=== PATIENT | female | born 1980 | race Caucasian/White ===

== ENCOUNTER 2017-05-19 06:34 | Inpatient (IN) | payer OTHER ==
[~2017-05-19] VITALS: Ht 154.9 cm; Wt 84.0 kg
[2017-05-19] MEDS ORDERED: OXYC-431 PO (06:53)
[2017-05-19] MEDS ORDERED: IBUP-1542 PO (06:53)
--- NOTE | 2017-05-19 07:01 | EN ---
Date/Time of Note Date/Time of Note DATE: 05/19/17 TIME: 07:00 ER Progress Note This patient is a direct admit from [facility]. Patient is admitted under panel physician ROMEO Ruiz DO May 19, 2017 07:00
[2017-05-19] MEDS ORDERED: SOD CHLORIDE 0.9% 1,000 ML IV SCH (07:24)
[2017-05-19] MEDS ORDERED: ONDANSETRON 4 MG INJ IV PRN ×2 (07:30→11:30)
[2017-05-19] MEDS ORDERED: ACETAMINOPHEN 325 MG TAB PO PRN ×2 (07:30→11:30)
[2017-05-19 09:05] VITALS: TEMP 98.1
[2017-05-19 10:07] VITALS: BP 115/61; PULSE 60; RESP 20
--- NOTE | 2017-05-19 11:22 | HP ---
Date/Time of Note Date/Time of Note DATE: 05/19/17 TIME: 11:16 Assessment/Plan VTE Prophylaxis VTE Prophylaxis Intervention: SCD's Lines/Catheters IV Catheter Type (from Nrsg): Peripheral IV Assessment/Plan Assessment/Plan 36 yo F with pmhx obesity, cholelithiasis admitted for abd pain found to have cholelithasis + elevated lipase, concerning for pancreatitis 2/2 gallstones v pancreatitis 2/2 other etios PLAN gen surg/Dr Louis consult for gallbladder eval check lipids/TGs check a1c though BG at OSH 140 (not markedly elevated) IVFs, pain control, zofran NPO pending gen surg eval DVT prophx HPI/ROS Admit Date/Time Admit Date/Time May 19, 2017 at 07:25 Hx of Present Illness 36 yo F with known h/o gallstones presented to [facility] with c/o RUQ/ epigastric pain. OSH vitals: Temp 35.8Cm HR 112, BP 132/81 Pt states the pain started 2 days ago. Mostly in RUQ with radiation to epigastric area. No fevers or chills. +mild nausea, no vomiting. +1 ep of diarrhea 10pROS neg except as per HPI PMH/Family/Social Past Medical History gallstones Social History not currently working Smoking Status: Never smoker Exam/Review of Systems Vital Signs Vitals Vital Signs Date Time Temp Pulse Resp B/P Pulse Ox O2 Delivery O2 Flow Rate FiO2 05/19/17 10:07 97.7 60 20 115/61 97 Room Air Exam Exam nad, laying flat EOMI MMM rrr no mrg lungs clear abd with ttp RUQ/epigastric area. No rebound or guarding no rashes no le edema Medications Medications Current Medications Sodium Chloride (NS) 1,000 ml @ 80 mls/hr [id number] IV Last administered on 05/19t 07:36; Admin Dose 80 MLS/HR; Start 05/19/17 at 07:24; Stop 05/19/17 at 19: 53 Procedures Procedures OSH imaging: RUQ US: cholelithiasis with minimal GB wall thickening, +fatty liver OSH labs 8.1>13/38<194 ChemP with Cr 0.75 Liver profile: lipase 1368, TB 4.7, ALT 400, AST 299, AP 180 UA large blood, trace protein, 10-25 WBCs (unclear if culture was sent) GEORGINA MCLEAN MD May 19, 2017 11:22
[2017-05-19] MEDS ORDERED: NACL 0.9% 3 ML SYG IV SCH (11:30)
[2017-05-19] MEDS ORDERED: DOCUSATE SODIUM 100 MG CAP PO PRN (11:30)
[2017-05-19] MEDS ORDERED: MAGNESIUM HYDROXIDE 30ML CUP PO PRN (11:30)
[2017-05-19] MEDS ORDERED: ONDANSETRON 4 MG TAB PO PRN (11:30)
[2017-05-19] MEDS: SOD CHLORIDE 0.9% 1,000 ML IV SCH ×2 (11:37→22:58)
[2017-05-19] MEDS: morphine 2 MG INJ IV PRN (11:37)
--- NOTE | 2017-05-19 12:34 | CONS ---
Date/Time of Note Date/Time of Note DATE: 05/19/17 TIME: 12:31 Assessment/Plan Assessment/Plan Additional Assessment/Plan Patient has biliary pancreatitis. We will arrange for an MRCP. If MRCP is negative we will proceed and arrange for laparoscopic cholecystectomy. I have discussed the procedure, outcomes, expectations, alternatives and risks in detail to the patient who is most anxious to proceed. Consultation Date/Type/Reason Admit Date/Time May 19, 2017 at 07:25 Date of Consultation: May 19, 2017 Type of Consultation: General surgery Reason for Consultation Biliary pancreatitis Hx of Present Illness The patient is a 36-year-old female who has known gallstones for approximately 1 month. She was evaluated at [facility] for abdominal ultrasound confirmed gallstones. She also had elevated lipase of 1600. She was transferred here because of insurance reasons, and surgical consultation has been requested in regards to further management. She has had no fevers chills or jaundice. Entirely unremarkable except for morbid obesity Social History Smoking Status: Never smoker Exam/Review of Systems Vital Signs Vitals Vital Signs Date Time Temp Pulse Resp B/P Pulse Ox O2 Delivery O2 Flow Rate FiO2 05/19/17 10:07 97.7 60 20 115/61 97 Room Air Exam Constitutional: alert Psych: no complaints Head: normocephalic Eyes: PERRL Neck: supple Respiratory: clear to auscultation Cardiovascular: regular rate and rhythm Gastrointestinal: tender (Epigastrium) Musculoskeletal: nl extremities to inspection Extremities: normal pulses Neurological: [employer] II-XII intact Medications Medications Current Medications Sodium Chloride (NS) 1,000 ml @ 125 mls/hr Q8H IV Last administered on 11:37; Admin Dose 125 MLS/HR; Start 05/19/17 at 11:12 Ondansetron HCl (Zofran Tab) 4 mg Q6H PRN PO NAUSEA AND/OR VOMITING; Start at 11:30 Ondansetron HCl (Zofran Inj) 4 mg Q6H PRN IV NAUSEA AND/OR VOMITING Last administered on 05/19/17 11:37; Admin Dose 4 MG; Start 05/19/17 at 11:30 Acetaminophen (Tylenol Tab) 650 mg Q6H PRN PO PAIN LEVEL 1-3 OR FEVER; Start at 11:30 Acetaminophen/ Hydrocodone Bitart ([place] (5/325)) 1 tab Q6H PRN PO MODERATE PAIN LEVEL 4-6; Start 05/19/17 at 11:30 Morphine Sulfate (morphine) 2 mg Q4H PRN IV SEVERE PAIN LEVEL 7-10 Last administered on 05/19/17t 11:37; Admin Dose 2 MG; Start 05/19/17 at 11:30 Docusate Sodium (Colace) 100 mg Q12H PRN PO CONSTIPATION; Start 05/19/17 at 11: 30 Magnesium Hydroxide (Milk Of Mag) 30 ml DAILY PRN PO CONSTIPATION; Start at 11:30 Enoxaparin Sodium (Lovenox) 40 mg DAILY SC ; Start 05/20/17 at 09:00 CHONG FARNSWORTH MD May 19, 2017 12:34
[2017-05-19 14:46] VITALS: BP 108/68; RESP 21
[2017-05-19] MEDS ORDERED: LORAZEPAM 1 MG TAB PO ONE (16:00)
[2017-05-19 20:53] VITALS: BP 119/83; RESP 18
[2017-05-20] VITALS (22 sets, daily range): BP systolic 96–144; BP diastolic 54–83; PULSE 60–76; RESP 16–23; Ht 154.9 cm; Wt 84.0 kg
[2017-05-20] MEDS: SOD CHLORIDE 0.9% 1,000 ML IV SCH ×3 (03:12→21:39)
[2017-05-20] MEDS ORDERED: LORAZEPAM 1 MG TAB PO SCH (06:00)
[2017-05-20 06:04] LABS: ADD SCAN DIFF NO
[2017-05-20 06:07] LABS: BASOPHILS % 0.1 % (0.0-2.0); EOSINOPHILS # 0.1 10^3/ul (0.0-0.5); EOSINOPHILS % 1.5 % (0.0-7.0); HEMATOCRIT 30.9 % (37.0-47.0); HEMOGLOBIN 10.4 g/dl (12.0-16.0); LYMPHOCYTES # 1.8 10^3/ul (0.8-2.9); LYMPHOCYTES % 26.9 % (15.0-51.0); MEAN CORPUSCULAR HEMOGLOBIN 32.9 pg (29.0-33.0); MEAN CORPUSCULAR HGB CONC 33.7 g/dl (32.0-37.0); MEAN CORPUSCULAR VOLUME 97.8 fl (82.0-101.0); MEAN PLATELET VOLUME 12.5 fl (7.4-10.4); MONOCYTE # 0.6 10^3/ul (0.3-0.9); MONOCYTES % 8.2 % (0.0-11.0); NEUTROPHIL # 4.2 10^3/ul (1.6-7.5); PLATELET COUNT 152 10^3/UL (140-415); RED BLOOD COUNT 3.16 10^6/ul (4.20-5.40); RED CELL DISTRIBUTION WIDTH 12.4 % (11.5-14.5); WHITE BLOOD COUNT 6.7 10^3/ul (4.8-10.8)
[2017-05-20 06:48] LABS: ALBUMIN 3.7 g/dl (3.3-4.9); ALBUMIN/GLOBULIN RATIO 1.37; BILIRUBIN,INDIRECT 1.7 mg/dl (0-1.1); BILIRUBIN,TOTAL 1.7 mg/dl (0.2-1.3); CALCIUM 8.4 mg/dl (8.4-10.2); CREATININE 0.59 mg/dl (0.44-1.00); POTASSIUM 3.5 mmol/L (3.5-5.1); TOTAL PROTEIN 6.4 g/dl (6.1-8.1)
[2017-05-20 06:52] LABS: CHOL/HDL RATIO 7.1 RATIO
[2017-05-20] MEDS: ENOXAPARIN 40 MG/0.4 ML SYG SC SCH (09:00)
--- NOTE | 2017-05-20 11:25 | RADRPT ---
PROCEDURE: MRCP. CLINICAL INDICATION: Right upper quadrant pain. Biliary pancreatitis. TECHNIQUE: MRCP was performed on the a high-resolution, high Ricarda field strength scanner. Patien t was examined without contrast. 3-D coronal rotating MIP images of the biliary tree are available for review. COMPARISON: None available FINDINGS: Gallbladder is remarkable for multiple sub centimeter gallstones. There is mild gallbladder wall thi ckening and pericholecystic edema. The biliary tree is not dilated. No intrahepatic nor extrahepati c biliary dilatation is present. No filling defect or choledocholithiasis is seen. There is no stric ture or obstruction. The pancreatic duct, as visualized, is equally unremarkable. IMPRESSION: 1. Multiple sub centimeter gallstones in nondistended gallbladder. Diffuse wall thickening with mi ld pericholecystic fluid is noted. The findings are equivocal for acute cholecystitis. Consider HI DA scan for further evaluation if there is clinical uncertainty. 2. No biliary ductal dilatation. No CBD stones. RPTAT: BB .Reina Ash MD, MD Date Time Electronically viewed and signed by .Reina Ash MD, MD on 05/20/2017 11:24 .O/
[2017-05-20] MEDS: HYDROCODONE/APAP (5/325) TAB PO PRN (11:49)
--- NOTE | 2017-05-20 16:03 | PN ---
Date/Time of Note Date/Time of Note DATE: 05/20/17 TIME: 15:56 Assessment/Plan VTE Prophylaxis VTE Prophylaxis Intervention: LMWH Lines/Catheters IV Catheter Type (from Nrsg): Peripheral IV Assessment/Plan Chief Complaint/Hosp Course Assessment/Plan: 36 yo F with pmhx obesity, cholelithiasis admitted for abd pain found to have cholelithasis + elevated lipase, concerning for pancreatitis 2/2 gallstones v pancreatitis 2/2 other etios 1. Abdominal pain: Secondary to cholelithiasis and pancreatitis. Slowly improving -For laparoscopic cholecystectomy later today, follow-up gen surg/Dr Louis Recs - check lipids/TGs - check a1c though BG at OSH 140 (not markedly elevated) - IVFs, pain control, zofran - continue NPO - - DVT prophx Problems: Subjective 24 Hr Interval Summary Free Text/Dictation Patient had MRCP this morning. Pain is minimal at this time. Awaiting possible laparoscopic cholecystectomy later today. Exam/Review of Systems Vital Signs Vitals Vital Signs Date Time Temp Pulse Resp B/P Pulse Ox O2 Delivery O2 Flow Rate FiO2 05/20/17 14:56 98.3 60 16 116/59 98 05/19/17 10:07 Room Air Intake and Output 05/19/17 05/19/17 05/20/17 15:00 23:00 07:00 Intake Total 1950 ml 1550 ml Balance 1950 ml 1550 ml Exam nad, laying flat EOMI MMM rrr no mrg lungs clear abd with ttp RUQ/epigastric area. No rebound or guarding no rashes no le edema Results Result Diagram: 05/20/17 0501 05/20/17 0501 Results 24 hrs Laboratory Tests Test 05/20/17 05:01 White Blood Count 6.7 Red Blood Count 3.16 L Hemoglobin 10.4 L Hematocrit 30.9 L Mean Corpuscular Volume 97.8 Mean Corpuscular Hemoglobin 32.9 Mean Corpuscular Hemoglobin Concent 33.7 Red Cell Distribution Width 12.4 Platelet Count 152 Mean Platelet Volume 12.5 H Neutrophils % 63.0 Lymphocytes % 26.9 Monocytes % 8.2 Eosinophils % 1.5 Basophils % 0.1 Nucleated Red Blood Cells % 0.0 Neutrophils # 4.2 Lymphocytes # 1.8 Monocytes # 0.6 Eosinophils # 0.1 Basophils # 0.0 Nucleated Red Blood Cells # 0.0 Sodium Level 144 Potassium Level 3.5 Chloride Level 103 Carbon Dioxide Level 27 Anion Gap 18 H Blood Urea Nitrogen 5 L Creatinine 0.59 Glucose Level 104 Hemoglobin A1c 5.2 Calcium Level 8.4 Total Bilirubin 1.7 H Direct Bilirubin 0.00 Indirect Bilirubin 1.7 H Aspartate Amino Transf (AST/SGOT) 322 H Alanine Aminotransferase (ALT/SGPT) 536 H Alkaline Phosphatase 161 H Total Protein 6.4 Albumin 3.7 Globulin 2.70 Albumin/Globulin Ratio 1.37 Triglycerides Level 142 Cholesterol Level 122 LDL Cholesterol, Calculated 77 HDL Cholesterol 17 L Cholesterol/HDL Ratio 7.1 Lipase 796 H Medications Medications Current Medications Sodium Chloride (NS) 1,000 ml @ 125 mls/hr Q8H IV Last administered on 06:51; Admin Dose 125 MLS/HR; Start 05/19/17 at 11:12 Ondansetron HCl (Zofran Tab) 4 mg Q6H PRN PO NAUSEA AND/OR VOMITING; Start at 11:30 Ondansetron HCl (Zofran Inj) 4 mg Q6H PRN IV NAUSEA AND/OR VOMITING Last administered on 05/19/17 11:37; Admin Dose 4 MG; Start 05/19/17 at 11:30 Acetaminophen (Tylenol Tab) 650 mg Q6H PRN PO PAIN LEVEL 1-3 OR FEVER; Start at 11:30 Acetaminophen/ Hydrocodone Bitart ([place] (5/325)) 1 tab Q6H PRN PO MODERATE PAIN LEVEL 4-6 Last administered on 05/20/17 11:49; Admin Dose 1 TAB; Start at 11:30 Morphine Sulfate (morphine) 2 mg Q4H PRN IV SEVERE PAIN LEVEL 7-10 Last administered on 05/19/17 11:37; Admin Dose 2 MG; Start 05/19/17 at 11:30 Docusate Sodium (Colace) 100 mg Q12H PRN PO CONSTIPATION; Start 05/19/17 at 11: 30 Magnesium Hydroxide (Milk Of Mag) 30 ml DAILY PRN PO CONSTIPATION; Start at 11:30 Enoxaparin Sodium (Lovenox) 40 mg DAILY SC ; Start 05/20/17 at 09:00 KATHY MOE May 20, 2017 16:03
[2017-05-20] MEDS ORDERED: LIDOCAINE 2% (SDV) 5 ML INJ ONE (18:25)
[2017-05-20] MEDS ORDERED: PROPOFOL 20 ML ONE (18:25)
[2017-05-20] MEDS ORDERED: SUCCINYLCHOLINE CHLORIDE 100 MG/5 ML SYG IV ONE (18:25)
[2017-05-20] MEDS ORDERED: MEPERIDINE 100 MG INJ ONE (18:25)
[2017-05-20] MEDS ORDERED: ROCURONIUM 50 MG INJ ONE (18:25)
[2017-05-20] MEDS ORDERED: GLYCOPYRROLATE 1 MG INJ ONE ×2 (18:25→18:45)
[2017-05-20] MEDS ORDERED: NEOSTIGMINE 3 MG/3 ML SYRINGE ONE ×2 (18:25→18:45)
[2017-05-20] MEDS ORDERED: ONDANSETRON 4 MG INJ IV PRN ×2 (18:30→19:30)
[2017-05-20] MEDS ORDERED: HYDROmorphONE (0.2 MG/ML) 10ML SYG IV PRN ×3 (18:30)
[2017-05-20] MEDS ORDERED: EPHEDrine SULFATE 50 MG/5 ML SYG IV PRN (18:30)
[2017-05-20] MEDS ORDERED: MIDAZOLAM 1 MG/ML 2 ML INJ IV PRN (18:30)
[2017-05-20] MEDS ORDERED: hydrALAzine 20 MG INJ IV PRN (18:30)
[2017-05-20] MEDS ORDERED: FENTAnyl 50 MCG/ML VIAL IV PRN ×3 (18:30)
[2017-05-20] MEDS ORDERED: DIPHENHYDRAMINE 50 MG INJ IV PRN (18:30)
[2017-05-20] MEDS ORDERED: OXYCODONE/ACETAMINOPHEN (5/325) TAB PO PRN ×4 (18:30→19:30)
[2017-05-20] MEDS ORDERED: METOCLOPRAMIDE 10 MG INJ IV PRN (18:30)
[2017-05-20] MEDS ORDERED: MEPERIDINE 25 MG INJ IV PRN (18:30)
[2017-05-20] MEDS ORDERED: LABETALOL HCL 20MG INJ IV PRN (18:30)
[2017-05-20] MEDS ORDERED: morphine (1 MG/ML) 10ML SYRINGE IV PRN ×3 (18:30)
[2017-05-20] MEDS ORDERED: ONDANSETRON 4 MG INJ ONE (18:45)
[2017-05-20] MEDS ORDERED: METOCLOPRAMIDE 10 MG INJ ONE (18:45)
[2017-05-20] MEDS ORDERED: CEFAZOLIN 1 GM INJ ONE (18:46)
[2017-05-20] MEDS ORDERED: BUPIVACAINE 0.25%/EPI (SDV) 30 ML INJ INJ ONE (18:57)
[2017-05-20] MEDS ORDERED: morphine 2 MG INJ IV PRN (19:30)
[2017-05-20] MEDS: morphine 2 MG INJ IV PRN (21:35)
[2017-05-21] MEDS: morphine 4 MG/ML VIAL IV PRN ×4 (00:33→13:52)
[2017-05-21 00:37] VITALS: BP 107/66; PULSE 62; RESP 18
[2017-05-21] MEDS: SOD CHLORIDE 0.9% 1,000 ML IV SCH ×2 (03:12→06:50)
[2017-05-21 05:42] LABS: ADD SCAN DIFF NO
[2017-05-21 05:46] LABS: BASOPHILS % 0.2 % (0.0-2.0); EOSINOPHILS % 0.5 % (0.0-7.0); HEMATOCRIT 33.6 % (37.0-47.0); HEMOGLOBIN 11.1 g/dl (12.0-16.0); LYMPHOCYTES # 1.6 10^3/ul (0.8-2.9); LYMPHOCYTES % 19.1 % (15.0-51.0); MEAN CORPUSCULAR HEMOGLOBIN 31.7 pg (29.0-33.0); MEAN PLATELET VOLUME 11.7 fl (7.4-10.4); MONOCYTE # 0.5 10^3/ul (0.3-0.9); MONOCYTES % 5.9 % (0.0-11.0); NEUTROPHIL # 6.2 10^3/ul (1.6-7.5); NEUTROPHILS % 73.8 % (39.0-77.0); PLATELET COUNT 208 10^3/UL (140-415); RED CELL DISTRIBUTION WIDTH 12.1 % (11.5-14.5); WHITE BLOOD COUNT 8.4 10^3/ul (4.8-10.8)
[2017-05-21 06:03] LABS: ALBUMIN 3.8 g/dl (3.3-4.9); ALBUMIN/GLOBULIN RATIO 1.08; BILIRUBIN,INDIRECT 1.5 mg/dl (0-1.1); BILIRUBIN,TOTAL 1.5 mg/dl (0.2-1.3); CALCIUM 8.9 mg/dl (8.4-10.2); CREATININE 0.59 mg/dl (0.44-1.00); TOTAL PROTEIN 7.3 g/dl (6.1-8.1)
[2017-05-21 08:15] VITALS: BP 121/64; RESP 16
[2017-05-21] MEDS: ENOXAPARIN 40 MG/0.4 ML SYG SC SCH (09:00)
[2017-05-21] MEDS: HYDROCODONE/APAP (5/325) TAB PO PRN (10:49)
[2017-05-21 14:59] VITALS: BP 120/81; RESP 16
--- NOTE | 2017-05-21 15:09 | PDOCDIS ---
Discharge Instructions CONDITION Patient Condition: Stable HOME CARE INSTRUCTIONS: Special Diet: REGULAR ACTIVITY: Activity Restrictions: Slowly Increase Activity FOLLOW UP/APPOINTMENTS Follow-up Plan Please take your medications as prescribed. Please follow-up with your primary care doctor and surgery doctor in the clinic in the next 1 week. KATHY MOE May 21, 2017 15:08
--- NOTE | 2017-05-21 15:17 | DS ---
Date/Time of Note Date/Time of Note DATE: 05/21/17 TIME: 15:14 Discharge Summary Admission/Discharge Info Admit Date/Time May 19, 2017 at 07:25 Discharge Date/Time Patient Condition: Serious Hx of Present Illness Hospital Course 36 yo F with known h/o gallstones initially presented to [facility] with c/o RUQ/epigastric pain, appears was transferred over here due to insurance purposes. Patient was found to have cholelithasis + elevated lipase, concerning for pancreatitis 2/2 gallstones v pancreatitis. She was admitted to medical surgical unit, seen by surgery team, initially made n.p.o. Given pain control medications and IV fluids and antiemetics. She underwent laparoscopic cholecystectomy as well, her lipase trended down to normal range, afterwards she was given pain control medications, her ABBY drains were removed, she was able to ambulate, tolerate a p.o. diet. After getting clearance from surgery team should be discharged home today improved condition, see below for full discharge medication list. In addition to that we will add simethicone as needed for any bloating symptoms. Home Meds Reported Medications Ibuprofen* (Ibuprofen*) 600 Mg Tablet, 600 MG PO Q6 for PAIN LEVEL 1-5, TAB 05/19/17 Oxycodone HCl/Acetaminophen (Oxycodone-Acetaminophen 10-325) 1 Each Tablet, 1 EACH PO Y for PAIN LEVEL 6-10, TAB 05/19/17 Primary Care Provider Mansi Stoner Time spent on discharge: > 30 minutes Pending Labs Laboratory Tests Test 05/21/17 05:24 White Blood Count 8.410^3/ul (4.8-10.8) Red Blood Count 3.5010^6/ul (4.20-5.40) Hemoglobin 11.1g/dl (12.0-16.0) Hematocrit 33.6% (37.0-47.0) Mean Corpuscular Volume 96.0fl (82.0-101.0) Mean Corpuscular Hemoglobin 31.7pg (29.0-33.0) Mean Corpuscular Hemoglobin Concent 33.0g/dl (32.0-37.0) Red Cell Distribution Width 12.1% (11.5-14.5) Platelet Count 01513^3/UL (140-415) Mean Platelet Volume 11.7fl (7.4-10.4) Neutrophils % 73.8% (39.0-77.0) Lymphocytes % 19.1% (15.0-51.0) Monocytes % 5.9% (0.0-11.0) Eosinophils % 0.5% (0.0-7.0) Basophils % 0.2% (0.0-2.0) Nucleated Red Blood Cells % 0.0/100WBC (0.0-0.0) Neutrophils # 6.210^3/ul (1.6-7.5) Lymphocytes # 1.610^3/ul (0.8-2.9) Monocytes # 0.510^3/ul (0.3-0.9) Eosinophils # 0.010^3/ul (0.0-0.5) Basophils # 0.010^3/ul (0.0-0.1) Nucleated Red Blood Cells # 0.010^3/ul (0.0-0.0) Sodium Level 143mmol/L (135-144) Potassium Level 4.0mmol/L (3.5-5.1) Chloride Level 100mmol/L (97-110) Carbon Dioxide Level 26mmol/L (21-31) Anion Gap 21 (8-16) Blood Urea Nitrogen 7mg/dl (7-20) Creatinine 0.59mg/dl (0.44-1.00) Glucose Level 135mg/dl (70-220) Calcium Level 8.9mg/dl (8.4-10.2) Total Bilirubin 1.5mg/dl (0.2-1.3) Direct Bilirubin 0.00mg/dl (0.00-0.20) Indirect Bilirubin 1.5mg/dl (0-1.1) Aspartate Amino Transf (AST/SGOT) 312IU/L (15-46) Alanine Aminotransferase (ALT/SGPT) 552IU/L (13-69) Alkaline Phosphatase 197IU/L (42-121) Total Protein 7.3g/dl (6.1-8.1) Albumin 3.8g/dl (3.3-4.9) Globulin 3.50g/dl (1.3-3.2) Albumin/Globulin Ratio 1.08 Lipase 99U/L (23-300) RAHI,KATHY S. May 21, 2017 15:16
--- NOTE | 2017-05-26 04:49 | OPR ---
DATE OF OPERATION:05/20/2017 PREOPERATIVE DIAGNOSIS: Acute cholecystitis. OPERATIVE PROCEDURE: 1. Laparoscopic cholecystectomy. 2. Placement of drain. POSTOPERATIVE DIAGNOSIS: Acute cholecystitis. SURGEON: Heriberto ANESTHESIA: General, Dr. Wiseman OPERATIVE PROCEDURE: After satisfactory general anesthesia was achieved, the abdomen was prepped and draped in the usual fashion. The abdomen was insufflated with carbon dioxide through an umbilical Veress needle to 15 mmHg pressure. The Veress needle was removed and the umbilical incision extended to 5 mm through which a 5 mm trocar was placed. A 5 mm zero-degree lens was placed. Laparoscopy showed an acutely inflamed gallbladder. Under direct visualization, a 12 mm epigastric trocar was placed as well as two 5 mm right lateral abdominal trocars. The dome of the gallbladder was grasped and retracted superiorly. Disha's pouch was retracted inferiorly. The hepatoduodenal ligament was carefully dissected. The cystic duct was triply hemoclipped and divided high at the junction of the gallbladder and the cystic duct well away from the melissa hepatis. The cystic artery was identified immediately posteriorly. This was triply hemoclipped, and divided between clips. The gallbladder was then dissected from below using electrocautery dissection and placed fully intact into an EndoCatch, removed via the epigastric route. Because of the moderate amount of inflammation surrounding the gallbladder, it was elected to put a drain. A #19 round Pedro drain was placed draining the right subhepatic space and gallbladder fossa and exited through the lateralmost puncture site where it was secured to the skin with a single suture of 2-0 silk ties. The abdomen was then desufflated and the trocars were removed. The fascia of the epigastrium was closed with a single suture of 0 Vicryl. The skin punctures were infiltrated with 30 cc of 0.25 percent Marcaine with epinephrine and closed with darin. ESTIMATED BLOOD LOSS: Less than 20 cc. COUNTS: Sponge and needle counts reported as correct x2. The patient tolerated the procedure well and without incident or complication. Dictated By: Orion Louis MD /sophia/arcenio /Document#: [id number] MTDD
== END 2017-05-21 17:00 | disposition home or self-care (01) | DRG 417 ==
LOC: E/R 06:34 → PP2 07:25
PROVIDERS: ADMIT Family Medicine; ATTEND Family Medicine
PROC: 0FT44ZZ Resection of Gallbladder, Percutaneous Endoscopic Approach (ICD-10-PCS; principal; 2017-05-20 19:00)
DX: K80.20 Calculus of gallbladder without cholecystitis without obstruction (principal); K85.10 Biliary acute pancreatitis without necrosis or infection; R74.8 Abnormal levels of other serum enzymes
CPT/HCPCS: 74181; 80053; 80061; 83036; 83690; 85025; 88304; J0690; J1170; J1650; J2175; J2270; J2405; J2710; J2765; J7030; J7999